=== PATIENT | male | born 1980 | race African-American/Black ===

== ENCOUNTER 2017-10-19 23:38 | Emergency (ER) | payer OTHER, MEDICAID ==
[~2017-10-19] VITALS: Ht 172.7 cm; Wt 106.6 kg
[~2017-10-19 23:38] MED LIST: FLEXERIL PO; HYDROCODON-ACE1 EAC7 PO; PENICILLIN VK500 MG PO; VALIUM5 MG PO
[2017-10-20] MEDS ORDERED: AMOXICILLIN 50500 MG PO (00:17)
[2017-10-20] MEDS ORDERED: IBUPROFEN 800800 M1 PO (00:17)
[2017-10-20] MEDS ORDERED: TRAMADOL 50 MG50 MG PO (00:17)
[2017-10-20] MEDS ORDERED: LIDOCAINE VISC100 ML SWISH&SPIT (00:17)
[2017-10-20 00:35] VITALS: BP 142/80
== END 2017-10-20 00:36 | disposition home or self-care (01) ==
LOC: M.ERS 23:38
DX: K08.89 Other specified disorders of teeth and supporting structures (principal); F17.210 Nicotine dependence, cigarettes, uncomplicated

== ENCOUNTER 2018-02-04 14:20 | Emergency (ER) | payer OTHER, MEDICAID ==
[~2018-02-04] VITALS: Ht 172.7 cm; Wt 113.4 kg
[~2018-02-04 14:20] MED LIST changes: +AMOXICILLIN 50500 MG PO; +IBUPROFEN 800800 M1 PO; +LIDOCAINE VISC100 ML SWISH&SPIT; +TRAMADOL 50 MG50 MG PO
[2018-02-04 14:26] VITALS: BP 140/69
[2018-02-04] MEDS ORDERED: TRAMADOL 50 MG50 MG PO (14:39)
[2018-02-04] MEDS ORDERED: IBUPROFEN 800800 M1 PO (14:39)
[2018-02-04] MEDS ORDERED: AMOXICILLIN 50500 MG PO (14:39)
== END 2018-02-04 14:51 | disposition home or self-care (01) ==
LOC: M.ERS 14:20
DX: K02.9 Dental caries, unspecified (principal); F17.210 Nicotine dependence, cigarettes, uncomplicated

== ENCOUNTER 2018-03-19 01:03 | Emergency (ER) | payer OTHER, MEDICAID ==
[~2018-03-19] VITALS: Ht 172.7 cm; Wt 108.9 kg
[2018-03-19 01:12] VITALS: BP 125/61
[2018-03-19] MEDS ORDERED: IBUPROFEN 800800 MG PO (01:18)
[2018-03-19] MEDS ORDERED: AMOXICILLIN 50500 M1 PO (01:18)
[2018-03-19] MEDS ORDERED: PERIDEX15 ML SWISH&SPIT (01:18)
== END 2018-03-19 01:34 | disposition home or self-care (01) ==
LOC: M.ERS 01:03
DX: K08.89 Other specified disorders of teeth and supporting structures (principal); F17.210 Nicotine dependence, cigarettes, uncomplicated

== ENCOUNTER 2018-05-02 20:03 | Inpatient (IN) | payer OTHER, MEDICAID ==
[~2018-05-02] VITALS: Ht 172.7 cm; Wt 116.1 kg
[~2018-05-02 20:03] MED LIST changes: +AMOXICILLIN 50500 M1 PO; +IBUPROFEN 800800 MG PO; +PERIDEX15 ML SWISH&SPIT
[2018-05-02 20:18] VITALS: BP 126/63
[2018-05-02 20:49] LABS: ABSOLUTE EOSINOPHILS 0.2 thou/uL (0.0-0.7); ABSOLUTE LYMPHOCYTES 3.4 thou/uL (0.8-5.3); ABSOLUTE MONOCYTES 0.4 thou/uL (0.0-1.2); ABSOLUTE NEUTROPHILS 5.8 thou/uL (1.6-8.1); BASOPHILS 0.5 %; EOSINOPHILS 2.5 %; HEMATOCRIT 35.5 % (42.0-52.0); HEMOGLOBIN 11.5 gm/dL (14.0-18.0); LYMPHOCYTES 34.3 %; MCH 27.1 pg (26.0-34.0); MCHC 32.3 g/dL (28.0-37.0); MPV 7.4 fl. (7.2-11.1); NUCLEATED RBCS 0 /100WBC; PLATELET COUNT* 288 thou/uL (150-400); POLYS 58.7 %; RBC 4.23 mil/uL (4.50-6.00); RDW-CV 13.1 % (10.5-14.5)
[2018-05-02 21:00] LABS: CALCIUM 8.4 mg/dL (8.5-10.1); CREATININE 0.8 mg/dL (0.6-1.3); POTASSIUM 3.9 mmol/L (3.5-5.1)
[2018-05-02 21:05] LABS: ALBUMIN 3.9 g/dL (3.4-5.0); TOTAL BILIRUBIN 0.2 mg/dL (<0.1-1.0); TOTAL PROTEIN 7.1 g/dL (6.4-8.2)
[2018-05-02] MEDS ORDERED: FLEXERIL PO ×2 (21:43→21:45)
[2018-05-02 23:58] LABS: URINE BILIRUBIN NEGATIVE (Negative); URINE BLOOD NEGATIVE (Negative); URINE CLARITY CLEAR; URINE COLOR STRAW; URINE GLUCOSE-RANDOM NEGATIVE (Negative); URINE KETONES NEGATIVE (Negative); URINE LEUKOCYTES-REFLEX NEGATIVE (Negative); URINE NITRITE-REFLEX NEGATIVE (Negative); URINE PROTEIN NEGATIVE (Negative); URINE UROBILINOGEN 0.2 E.U./dl (0.2-1.0)
[2018-05-03 00:40] VITALS: BP 144/71
[2018-05-03 02:16] VITALS: BP 134/68
[2018-05-03 05:00] LABS: CALCIUM 8.4 mg/dL (8.5-10.1); CREATININE 0.7 mg/dL (0.6-1.3); POTASSIUM 3.8 mmol/L (3.5-5.1)
[2018-05-03] MEDS ORDERED: SUBOXONE 8 MG-1 EAC3 DISSOLVE (08:48)
[2018-05-03 08:50] VITALS: BP 117/54
[2018-05-03 09:13] VITALS: BP 134/68
[2018-05-03 09:39] LABS: CALCIUM 8.9 mg/dL (8.5-10.1); CREATININE 0.7 mg/dL (0.6-1.3); POTASSIUM 4.1 mmol/L (3.5-5.1)
[2018-05-03 16:00] VITALS: BP 120/72
[2018-05-03 20:00] VITALS: BP 139/74
[2018-05-04 04:11] LABS: CALCIUM 8.3 mg/dL (8.5-10.1); CREATININE 0.8 mg/dL (0.6-1.3); MAGNESIUM 1.6 mg/dL (1.8-2.4); POTASSIUM 3.9 mmol/L (3.5-5.1)
[2018-05-04 05:00] VITALS: BP 129/55
[2018-05-04 09:20] VITALS: BP 119/56
[2018-05-04 17:04] VITALS: BP 118/40
[2018-05-04 21:30] VITALS: BP 142/71
[2018-05-05 05:22] LABS: CALCIUM 8.4 mg/dL (8.5-10.1); CREATININE 0.8 mg/dL (0.6-1.3); MAGNESIUM 1.8 mg/dL (1.8-2.4); POTASSIUM 4.1 mmol/L (3.5-5.1)
[2018-05-05 07:45] VITALS: BP 101/47
[2018-05-05 09:49] VITALS: BP 134/68
== END 2018-05-05 10:28 | disposition home or self-care (01) | DRG 558 ==
LOC: M.ERS 20:03 → M.TBA-ER 23:39 → M.ORTHSURG 23:39
PROVIDERS: Nurse Practitioner Family; ADMIT Internal Medicine
DX: M62.82 Rhabdomyolysis (principal); F11.20 Opioid dependence, uncomplicated; F17.210 Nicotine dependence, cigarettes, uncomplicated; Z79.899 Other long term (current) drug therapy

== ENCOUNTER 2019-01-10 10:31 | Emergency (ER) | payer OTHER, MEDICAID ==
[~2019-01-10] VITALS: Ht 172.7 cm; Wt 102.1 kg
[~2019-01-10 10:31] MED LIST changes: +SUBOXONE 8 MG-1 EAC3 DISSOLVE
[2019-01-10 10:49] LABS: ABSOLUTE BASOPHILS 0.1 thou/uL (0.0-0.2); ABSOLUTE EOSINOPHILS 0.2 thou/uL (0.0-0.7); ABSOLUTE LYMPHOCYTES 2.8 thou/uL (0.8-5.3); ABSOLUTE MONOCYTES 0.4 thou/uL (0.0-1.2); ABSOLUTE NEUTROPHILS 7.2 thou/uL (1.6-8.1); BASOPHILS 0.9 %; EOSINOPHILS 1.7 %; HEMATOCRIT 38.2 % (42.0-52.0); HEMOGLOBIN 12.2 gm/dL (14.0-18.0); LYMPHOCYTES 26.2 %; MCV 84.3 fL (80.0-100.0); MONOCYTES 3.3 %; MPV 7.4 fl. (7.2-11.1); NUCLEATED RBCS 0 /100WBC; PLATELET COUNT* 319 thou/uL (150-400); POLYS 67.9 %; RBC 4.53 mil/uL (4.50-6.00); RDW-CV 13.8 % (10.5-14.5); WBC 10.7 thou/uL (4.0-11.0)
[2019-01-10 10:58] LABS: URINE BILIRUBIN NEGATIVE (Negative); URINE BLOOD NEGATIVE (Negative); URINE CLARITY CLEAR; URINE COLOR YELLOW; URINE GLUCOSE-RANDOM NEGATIVE (Negative); URINE KETONES TRACE (Negative); URINE LEUKOCYTES-REFLEX NEGATIVE (Negative); URINE NITRITE-REFLEX NEGATIVE (Negative); URINE PROTEIN NEGATIVE (Negative); URINE SPECIFIC GRAVITY >= 1.030 (1.005-1.030); URINE UROBILINOGEN 0.2 E.U./dl (0.2-1.0)
[2019-01-10 11:03] LABS: ALBUMIN 3.7 g/dL (3.4-5.0); CALCIUM 8.9 mg/dL (8.5-10.1); CREATININE 0.8 mg/dL (0.6-1.3); POTASSIUM 3.7 mmol/L (3.5-5.1); TOTAL BILIRUBIN 0.2 mg/dL (<0.1-1.0); TOTAL PROTEIN 7.4 g/dL (6.4-8.2)
[2019-01-10] MEDS ORDERED: VISTARIL 25 MG25 M1 PO (11:12)
[2019-01-10] MEDS ORDERED: ONDANSETRON HCL4 M2 PO (11:13)
[2019-01-10 11:23] VITALS: BP 132/68
== END 2019-01-10 11:24 | disposition home or self-care (01) ==
LOC: M.ERS 10:31
PROVIDERS: Physician Assistant
DX: F11.23 Opioid dependence with withdrawal (principal); K52.1 Toxic gastroenteritis and colitis; T40.2X5A Adverse effect of other opioids, initial encounter; Y92.89 Other specified places as the place of occurrence of the external cause; F17.210 Nicotine dependence, cigarettes, uncomplicated

== ENCOUNTER 2019-05-01 17:50 | Emergency (ER) | payer OTHER, MEDICAID ==
[~2019-05-01] VITALS: Ht 172.7 cm; Wt 95.3 kg
[~2019-05-01 17:50] MED LIST changes: +ONDANSETRON HCL4 M2 PO; +VISTARIL 25 MG25 M1 PO
[2019-05-01] MEDS ORDERED: CLEOCIN HCL300 MG PO (18:13)
[2019-05-01 18:18] VITALS: BP 139/49
== END 2019-05-01 18:18 | disposition home or self-care (01) ==
LOC: M.ERS 17:50
DX: K08.89 Other specified disorders of teeth and supporting structures (principal); L53.9 Erythematous condition, unspecified; R22.0 Localized swelling, mass and lump, head; F17.210 Nicotine dependence, cigarettes, uncomplicated

== ENCOUNTER 2019-05-20 16:43 | Emergency (ER) | payer OTHER, MEDICAID ==
[~2019-05-20] VITALS: Ht 172.7 cm; Wt 97.5 kg
[~2019-05-20 16:43] MED LIST changes: +CLEOCIN HCL300 MG PO
[2019-05-20] MEDS ORDERED: SUBOXONE 8 MG-1 EAC3 PO (16:51)
[2019-05-20] MEDS ORDERED: LIDOCAINE VISC100 ML SWISH&SPIT ×2 (17:18→17:29)
[2019-05-20] MEDS ORDERED: AMOXICILLIN 50500 MG PO (17:18)
[2019-05-20] MEDS ORDERED: CLEOCIN HCL150 MG PO (17:29)
[2019-05-20 18:01] VITALS: BP 151/96
== END 2019-05-20 18:01 | disposition home or self-care (01) ==
LOC: M.ERS 16:43
DX: K04.7 Periapical abscess without sinus (principal); F17.210 Nicotine dependence, cigarettes, uncomplicated

== ENCOUNTER 2019-12-01 21:19 | Emergency (ER) | payer OTHER, MEDICAID ==
[~2019-12-01] VITALS: Ht 175.3 cm; Wt 99.8 kg
[~2019-12-01 21:19] MED LIST changes: +CLEOCIN HCL150 MG PO; +SUBOXONE 8 MG-1 EAC3 PO
[2019-12-01] MEDS ORDERED: CLEOCIN HCL150 MG PO (21:57)
[2019-12-01] MEDS ORDERED: TRAMADOL 50 MG50 MG PO (21:57)
[2019-12-01 22:01] VITALS: BP 132/68
== END 2019-12-01 22:01 | disposition home or self-care (01) ==
LOC: M.ERS 21:19
DX: K02.9 Dental caries, unspecified (principal); F17.210 Nicotine dependence, cigarettes, uncomplicated; Z88.1 Allergy status to other antibiotic agents

== ENCOUNTER 2021-02-06 22:17 | Emergency (ER) | payer OTHER, MEDICAID ==
[~2021-02-06] VITALS: Ht 172.7 cm; Wt 111.1 kg
[2021-02-07 00:16] VITALS: BP 129/67
== END 2021-02-07 00:16 | disposition home or self-care (01) ==
LOC: M.ERS 22:17
DX: M25.475 Effusion, left foot (principal); F17.210 Nicotine dependence, cigarettes, uncomplicated; Z88.1 Allergy status to other antibiotic agents

== ENCOUNTER 2021-04-05 18:29 | Emergency (ER) | payer OTHER, MEDICAID ==
[~2021-04-05] VITALS: Ht 175.3 cm; Wt 108.9 kg
[2021-04-05] MEDS ORDERED: FLEXERIL PO (19:12)
[2021-04-05] MEDS ORDERED: NAPROXEN500 MG PO (19:12)
[2021-04-05 19:37] VITALS: BP 129/61
== END 2021-04-05 19:38 | disposition home or self-care (01) ==
LOC: M.ERS 18:29
DX: M54.5 Low back pain (principal); F17.210 Nicotine dependence, cigarettes, uncomplicated; Z88.0 Allergy status to penicillin; Z79.899 Other long term (current) drug therapy; V47.5XXA Car driver injured in collision with fixed or stationary object in traffic accident, initial encounter; Y93.I9 Activity, other involving external motion; Y92.488 Other paved roadways as the place of occurrence of the external cause; Y99.8 Other external cause status

== ENCOUNTER 2021-07-13 01:32 | Emergency (ER) | payer OTHER, MEDICAID ==
[~2021-07-13] VITALS: Ht 172.7 cm; Wt 104.3 kg
[~2021-07-13 01:32] MED LIST changes: +NAPROXEN500 MG PO
[2021-07-13 01:42] VITALS: BP 126/66
[2021-07-13] MEDS ORDERED: DOXYCYCLINE 10100 MG PO (01:57)
[2021-07-13] MEDS ORDERED: PERIDEX15 ML SWISH&SPIT (01:57)
[2021-07-13] MEDS ORDERED: IBUPROFEN 600600 M1 PO (01:57)
== END 2021-07-13 02:11 | disposition home or self-care (01) ==
LOC: M.ERS 01:32
DX: K02.9 Dental caries, unspecified (principal); F17.210 Nicotine dependence, cigarettes, uncomplicated; Z88.1 Allergy status to other antibiotic agents